=== PATIENT | female | born 1955 | race Caucasian/White ===

== ENCOUNTER 2018-08-13 14:27 | Emergency (ER) | payer OTHER ==
[~2018-08-13] VITALS: Ht 172.7 cm; Wt 81.6 kg
[~2018-08-13 14:27] MED LIST: CHOL20007 PO; CYAN100L PO; INSLANTI SC; INSLISPI SC; LISI-646 PO; METF-370 PO; PRAV20TA3 PO; WARF10TA20 PO
[2018-08-13 15:32] LABS: Albumin 3.2 g/dL (3.4-5.0); Anion Gap 7 (5-15); Calcium 8.9 mg/dL (8.5-10.1); Carbon Dioxide 27 mmol/L (21-32); Chloride 107 mmol/L (98-107); Glucose 112 mg/dL (74-106); Potassium 4.1 mmol/L (3.5-5.1); Sodium 141 mmol/L (136-145)
[2018-08-13 15:37] LABS: Alanine Aminotransferase 18 U/L (13-56); Alkaline Phosphatase 92 U/L (45-117); Aspartate Aminotransferase 13 U/L (15-37); BUN/Creatinine Ratio 18.4; Bilirubin, Total 0.3 mg/dL (0.2-1.0); Blood Urea Nitrogen 14 mg/dL (7-18); GFR African American 99 mL/min; GFR Non-African American 82 mL/min; Total Protein 6.8 g/dL (6.4-8.2)
[2018-08-13 16:12] LABS: Basophils # (auto) 0 uL; Basophils % (auto) 0.6 % (0.0-2.0); Eosinophils # (auto) 0.1 uL; Eosinophils % (auto) 1.1 % (0.0-7.0); Hemoglobin 15.5 g/dL (12.2-16.2); Lymphocytes # (auto) 1.7 uL; Lymphocytes % (auto) 25.8 % (10.0-50.0); Mean Corpuscular Hemoglobin 31.6 pg (28.0-32.0); Mean Corpuscular Volume 95.8 fL (80.0-100.0); Monocytes # (auto) 0.5 uL; Monocytes % (auto) 8.2 % (0.0-12.0); Neutrophils # (auto) 4.2 uL; Neutrophils % (auto) 64.3 % (37.0-80.0); Nucleated Red Blood Cells % 0.2 %; Platelet Count (auto) 247 10^3/uL (140-450); Red Blood Cells 4.91 10^6/uL (4.0-5.20); Red Cell Distribution Width 13.8 % (11.8-14.3); White Blood Cell 6.5 10^3/uL (4.4-10.8)
[2018-08-13 16:43] LABS: Urine Bacteria NONE SEEN /hpf (None Seen); Urine Blood Negative /uL (Negative); Urine Specific Gravity 1.006 (1.001-1.035); Urine WBC 3 /hpf (0 - 5)
[2018-08-14] MEDS ORDERED: ONDANSETRON HCL 4 MG/2 ML VIAL IV ONE (01:30)
[2018-08-14] MEDS ORDERED: MORPHINE SULF INJ 2 MG/ML SYRINGE 1ML IV ONE (01:30)
[2018-08-14] MEDS ORDERED: SODIUM CHLORIDE 0.9% 1,000 ML IV ONE (01:30)
[2018-08-14 02:28] VITALS: BP 122/72
== END 2018-08-14 03:35 | disposition home or self-care (01) ==
LOC: ER 14:27
DX: A08.4 Viral intestinal infection, unspecified (principal); E86.0 Dehydration; I11.0 Hypertensive heart disease with heart failure; I50.9 Heart failure, unspecified; E11.9 Type 2 diabetes mellitus without complications; F17.210 Nicotine dependence, cigarettes, uncomplicated; Z90.710 Acquired absence of both cervix and uterus; Z86.73 Personal history of transient ischemic attack (TIA), and cerebral infarction without residual deficits; Z86.711 Personal history of pulmonary embolism; Z79.899 Other long term (current) drug therapy; Z79.4 Long term (current) use of insulin
CPT/HCPCS: 36415; 80053; 81001; 83605; 84484; 85025; 87804; 93005; 96361; 96374; 96375; 99284; J2270; J2405; J7030

== ENCOUNTER 2021-06-14 21:32 | Emergency (ER) | payer OTHER ==
[~2021-06-14] VITALS: Ht 172.7 cm; Wt 97.1 kg
[~2021-06-14 21:32] MED LIST changes: -LISI-646 PO; +LISI20TA28 PO
[2021-06-14 22:03] LABS: Basophils # (auto) 0.2 10 ^3/uL (0-0.2); Eosinophils # (auto) 0.1 10 ^3/uL (0-0.8); Eosinophils % (auto) 1.2 % (0.0-7.0); Hemoglobin 16.5 g/dL (12.2-16.2); Lymphocytes # (auto) 1.5 10 ^3/uL (0.4-5.4); Lymphocytes % (auto) 24.4 % (10.0-50.0); Mean Corpuscular Hemoglobin 31.8 pg (28.0-32.0); Mean Corpuscular Hgb Conc. 33.7 g/dL (32.0-36.0); Mean Corpuscular Volume 94.2 fL (80.0-100.0); Monocytes # (auto) 0.7 10 ^3/uL (0-1.3); Monocytes % (auto) 11.6 % (0.0-12.0); Neutrophils # (auto) 3.6 10 ^3/uL (1.6-8.6); Neutrophils % (auto) 59.8 % (37.0-80.0); Red Cell Distribution Width 13.9 % (11.8-14.3)
[2021-06-14 22:21] LABS: Albumin 3.4 g/dL (3.4-5.0); BUN/Creatinine Ratio 10.7; Calcium 9.5 mg/dL (8.5-10.1); Potassium 4.4 mmol/L (3.5-5.1)
[2021-06-14 22:26] LABS: Bilirubin, Total 0.8 mg/dL (0.2-1.0); Total Protein 7.1 g/dL (6.4-8.2)
[2021-06-14] MEDS ORDERED: IOHEXOL 300 MG/ML 100ML BOTTLE IJ ONE (22:28)
[2021-06-15 01:30] VITALS: BP 116/72
[2021-06-15] MEDS ORDERED: DICYCLOMINE HCL (10MG/ML) 2 ML AMPULE IM ONE (02:15)
[2021-06-15] MEDS ORDERED: FAMO20TA10 PO (02:27)
[2021-06-15] MEDS ORDERED: DICY10CA PO (02:27)
[2021-06-15] MEDS ORDERED: SUCR1TAB22 OR (02:27)
[2021-06-15] MEDS ORDERED: KETOROLAC TROMETH 60MG/2ML VIAL IM ONE (02:30)
== END 2021-06-15 02:43 | disposition home or self-care (01) ==
LOC: ER 21:35
DX: R55 Syncope and collapse (principal); R10.10 Upper abdominal pain, unspecified; I11.0 Hypertensive heart disease with heart failure; I50.9 Heart failure, unspecified; E11.9 Type 2 diabetes mellitus without complications; F17.210 Nicotine dependence, cigarettes, uncomplicated; Z90.710 Acquired absence of both cervix and uterus; Z86.73 Personal history of transient ischemic attack (TIA), and cerebral infarction without residual deficits
CPT/HCPCS: 36415; 74177; 80053; 83690; 84484; 85025; 93005; 96372; 99285; Q9967

== ENCOUNTER 2021-12-21 16:36 | Emergency (ER) | payer MEDICARE, OTHER ==
[~2021-12-21] VITALS: Ht 172.7 cm; Wt 190.0 kg
[~2021-12-21 16:36] MED LIST changes: +DICY10CA PO; +FAMO20TA10 PO; +SUCR1TAB22 OR
[2021-12-21 18:01] LABS: Basophils # (auto) 0 10 ^3/uL (0-0.2); Basophils % (auto) 0.7 % (0.0-2.0); Eosinophils # (auto) 0.1 10 ^3/uL (0-0.8); Eosinophils % (auto) 1.4 % (0.0-7.0); Hemoglobin 14.4 g/dL (12.2-16.2); Lymphocytes # (auto) 1.5 10 ^3/uL (0.4-5.4); Mean Corpuscular Hemoglobin 30.4 pg (28.0-32.0); Mean Corpuscular Hgb Conc. 31.9 g/dL (32.0-36.0); Mean Corpuscular Volume 95.4 fL (80.0-100.0); Monocytes # (auto) 0.5 10 ^3/uL (0-1.3); Monocytes % (auto) 10.8 % (0.0-12.0); Neutrophils # (auto) 2.2 10 ^3/uL (1.6-8.6); Neutrophils % (auto) 51.1 % (37.0-80.0); Nucleated Red Blood Cells % 0.1 %; Red Blood Cells 4.72 10^6/uL (4.0-5.20); Red Cell Distribution Width 14.7 % (11.8-14.3); White Blood Cell 4.3 10^3/uL (4.4-10.8)
[2021-12-21 18:18] LABS: INR 3.15 (0.9-1.15)
[2021-12-21 18:29] LABS: Calcium 8.7 mg/dL (8.5-10.1); Potassium 4.3 mmol/L (3.5-5.1)
[2021-12-21 18:33] LABS: BUN/Creatinine Ratio 21.1; Bilirubin, Total 0.5 mg/dL (0.2-1.0); Total Protein 6.4 g/dL (6.4-8.2)
[2021-12-21 20:15] VITALS: BP 134/75
== END 2021-12-21 20:17 | disposition home or self-care (01) ==
LOC: ER 16:36
DX: R22.42 Localized swelling, mass and lump, left lower limb (principal); M79.662 Pain in left lower leg; I11.0 Hypertensive heart disease with heart failure; I50.9 Heart failure, unspecified; E11.9 Type 2 diabetes mellitus without complications; F17.210 Nicotine dependence, cigarettes, uncomplicated; Z86.73 Personal history of transient ischemic attack (TIA), and cerebral infarction without residual deficits; Z79.4 Long term (current) use of insulin; Z79.899 Other long term (current) drug therapy; Z90.49 Acquired absence of other specified parts of digestive tract; Z90.710 Acquired absence of both cervix and uterus
CPT/HCPCS: 36415; 80053; 85025; 85610; 93971

== ENCOUNTER 2024-06-17 12:37 | Inpatient (IN) | payer MEDICARE, OTHER ==
[~2024-06-17] VITALS: Ht 147.3 cm; Wt 91.6 kg
[~2024-06-17 12:37] MED LIST changes: -LISI20TA28 PO; +LISI20TA56 PO; -SUCR1TAB22 OR; +SUCR1TAB31 OR; +WARF-115 PO; -WARF10TA20 PO
--- NOTE | 2024-06-17 13:25 | ED.PDOC ---
History of present illness HPI Comments 68 y/o F, presents to the ED for CC hyperglycemia. Patient states, that she has been experiencing hyperglycemic episodes with associated symptoms of excessive thirst, and dizziness x months. Patient relays, that she had an appointment with her PCP this morning (06/17/24); for an insulin refill. Patient comments on, when she went to [facility] prescription there was an issue with the pharmacy and was unable to obtain her medication. Patient states, she ran out of her insulin [id number] ago. Patient's blood sugar in triage read at 515. No other symptoms or modifying factors at this time. Chief Complaint: Hyperglycemia Time Seen by MD: 13:00 Primary Care Provider: NEVAEH History of present illness: Nurses Notes, Medications, Allergies Allergies: Coded Allergies: NO KNOWN ALLERGIES (Unverified , 03/11/12) Home Meds Active Scripts Famotidine (PEPCID TABLET) 20 Mg Tb, 1 TAB PO BID, #60 TAB 5 Refills Prov:MICHAEL MELO MD 06/15/21 Dicyclomine Hcl (BENTYL CAPSULE) 10 Mg Cp, 1 CAP PO Q6HPRN for 10 Days, #40 CAP 3 Refills Prov:MICHAEL MELO MD 06/15/21 Sucralfate (CARAFATE) 1 Gm Tab, 1 GM OR q 6HRS for 10 Days, #40 TAB Prov:MICHAEL MELO MD 06/15/21 Reported Medications Warfarin Sodium (Warfarin Sodium) 10 Mg Tab, 10 MG PO, TAB 11/13/17 Cholecalciferol (VITAMIN D3) 2,000 Unit Tab, 5000 UNIT PO DAILY, TAB 11/11/17 Cyanocobalamin (VITAMIN B 12) 100 Mcg True, 500 MCG PO DAILY, TRUE 11/11/17 Insulin Glargine (Lantus) 100 Unit/Ml Inj, 90 UNIT SC QHSP, INJ 11/11/17 Insulin Lispro (Human) (Humalog) 100 Unit/Ml Inj, SC, INJ 11/11/17 Pravastatin Sodium (PRAVACHOL TABLET) 20 Mg Tb, 1 TAB PO DAILY, #30 TAB 5 Refills 11/11/17 Metformin Hydrochloride (Metformin Hcl) 500 Mg Tab, 1000 MG PO BID for 30 Days, MG 11/11/17 Lisinopril (Lisinopril) 20 Mg Tab, 20 MG PO DAILY for 30 Days, MG 7/10/18 Information Source: Patient Mode of Arrival: Ambulatory Timing: Months Duration: Since onset Prehospital treatment: None [place]: None History of: Diabetes, Insulin use Modifying factors: Nothing Associated signs and symptoms: None Past Medical History PAST MEDICAL HISTORY: Cancer, CHF, CVA, DM, HTN, PE Surgical History: Appendectomy, Hysterectomy STONEWORK TRACER History: No Pertinent STONEWORK TRACER History Family History Family History: No family hx of Cancer, No family hx of DM, No family hx of Heart liss, No family hx of HTN Social History Smoker: Cigarettes, Less Than 1 Pack/Day Alcohol: Occasionally Drugs: Denies Drug Use Lives In: Home Constitutional: reports: fatigue; denies: chills, diaphoresis, fever, malaise, sweats, weakness, others EENTM: denies: blurred vision, double vision, ear bleeding, ear discharge, ear drainage, ear pain, ear ringing, eye pain, eye redness, hearing loss, mouth p ain, mouth swelling, nasal discharge, nose bleeding, nose congestion, nose pain, photophobia, tearing, throat pain, throat swelling, voice changes, others Respiratory: denies: cough, hemoptysis, orthopnea, SOB at rest, shortness of br eath, SOB with excertion, stridor, wheezing, others Cardiovascular: denies: chest pain, dizzy spells, diaphoresis, Dyspnea on exertion, edema, irregular heart beat, left arm pain, lightheadedness, palpitations, PND, syncope, others Gastrointestinal: denies: abdomen distended, abdominal pain, blood streaked bowels, constipated, diarrhea, dysphagia, difficulty swallowing, hematemesis, melena, nausea, poor appetite, poor fluid intake, rectal bleeding, rectal pain, vomiting, others Genitourinary: denies: abnormal vagina bleeding, burning, dyspareunia, dysuria, flank pain, frequency, hematuria, incontinence, pain, , vagina discharge, urgency, others Neurological: reports: dizziness; denies: fainting, headache, left sided numbness, left sided weakness, numbness, paresthesia, pre-existing deficit, right sided numbness, right sided weakness, seizure, speech problems, tingling, tremors, weakness, others Musculoskeletal: denies: back pain, gout, joint pain, joint swelling, muscle pain, muscle stiffness, neck pain, others Integumetry: denies: bruises, change in color, change in hair/nails, dryness, laceration, lesions, lumps, rash, wounds, others Allergic/Immunocompromised: denies: Difficulty Healing, Frequent Infections, Hives, Itching, others Hematologic/Lymphatic: denies: anemia, blood clots, easy bleeding, easy bruis ing, swollen glands, others Endocrine: denies: excessive hunger, excessive sweating, excessive thirst, exc essive urination, flushing, intolerance to cold, intolerance to heat, unexplained weight gain, unexplained weight loss, others Psychiatric: denies: anxiety, bipolar disorder, depression, hopeless, panic disorder, schizophrenia, sleepless, suicidal, others All Other Systems: Reviewed and Negative Physical Exam General Appearance: Moderate Distress HEENT: Normal ENT Inspection, Pharynx Normal, TMs Normal Neck: Full Range of Motion, Non-Tender, Normal, Normal Inspection Respiratory: Chest Non-Tender, Lungs Clear, No Accessory Muscle Use, No Respiratory Distress, Normal Breath Sounds Cardiovascular: No Edema, No JVD, No Murmur, No Gallop, Normal Peripheral Pulses, Regular Rate/Rhythm Breast Exam: Deferred Gastrointestinal: No Organomegaly, Non Tender, No Pulsatile Mass, Normal Bowel Sounds, Soft Genitalia: Deferred Pelvic: Deferred Rectal: Deferred Extremities: No calf tenderness, Normal capillary refill, Normal inspection, Normal range of motion, Non-tender, No pedal edema Musculoskeletal : Apperance: Normal Neurologic: Alert, pewter caster II-XII nml as Tested, Motor Weakness, Normal Affect, Normal Mood, No Sensory Deficits Cerebellar Function: Normal Reflexes: Normal Skin: Dry, Normal Color, Warm Lymphatic: No Adenopathy Was a procedure done? Was a procedure done?: No EKG EKG : Pulse Rate (adult): 73 [place]: Normal Cardiac Rhythm: NSR Block: None Hypertrophy: LAE, LVH ST: Normal Differential Diagnosis (DM) Differential Diagnosis: Hyperglycemia X-Ray, Labs, Meds, VS Vital Signs Date Time Temp Pulse Resp B/P (MAP) Pulse Ox O2 Delivery O2 Flow Rate FiO2 06/17/24 14:23 98.4 79 18 103/55 (71) 95 98.4 06/17/24 14:23 79 18 95 Room Air 06/17/24 13:25 73 06/17/24 12:53 73 06/17/24 12:46 98.7 78 20 130/57 (81) 95 Lab Test 06/17/24 14:23 06/17/24 13:24 06/17/24 12:47 06/17/24 12:46 Range/Units Urine Color Light-yellow Yellow Urine Clarity Clear Clear Urine pH 6.0 5.0-9.0 Urine Specific [place] 1.031 1.001-1.035 Urine Protein Negative Negative Urine Ketones 1+ H Negative Urine Blood Negative Negative /uL Urine Nitrite 2+ H Negative Urine Bilirubin Negative Negative Urine Urobilinogen Normal Negative mg/dL Urine Leukocyte Esterase 1+ Negative /uL Urine RBC 5 0 - 4 /hpf Urine Microscopic WBC 19 H 0-5 /HPF Urine Squamous Epithelial Cells Few <5 /hpf Urine Bacteria Few H None Seen /hpf Urine Mucus Few None Seen Urine Yeast (Budding) Occasional None Seen /hpf Urine Glucose 4+ H Normal mg/dL POC Glucose 302 H 515 *H 515 *H 70-106 mg/dl White Blood Count 4.0 L 4.4-10.8 10^3/uL Red Blood Count 4.91 4.0-5.20 10^6/uL Hemoglobin 15.5 12.2-16.2 g/dL Hematocrit 46.7 H 36.0-46.0 % Mean Corpuscular Volume 95.0 80.0-100.0 fL Mean Corpuscular Hemoglobin 31.6 28.0-32.0 pg Mean Corpuscular Hemoglobin Concent 33.2 32.0-36.0 g/dL Red Cell Distribution Width 12.8 11.8-14.3 % Platelet Count 208 140-450 10^3/uL Mean Platelet Volume 9.5 6.9-10.8 fL Neutrophils (%) (Auto) 61.9 37.0-80.0 % Lymphocytes (%) (Auto) 27.3 10.0-50.0 % Monocytes (%) (Auto) 9.2 0.0-12.0 % Eosinophils (%) (Auto) 0.7 0.0-7.0 % Basophils (%) (Auto) 0.9 0.0-2.0 % Neutrophils # (Auto) 2.5 1.6-8.6 10 ^3/uL Lymphocytes # (Auto) 1.1 0.4-5.4 10 ^3/uL Monocytes # (Auto) 0.4 0-1.3 10 ^3/uL Eosinophils # (Auto) 0 0-0.8 10 ^3/uL Basophils # (Auto) 0 0-0.2 10 ^3/uL Nucleated Red Blood Cells 0.3 % Sodium Level 136 136-145 mmol/L Potassium Level 5.1 3.5-5.1 mmol/L Chloride Level 98 98-107 mmol/L Carbon Dioxide Level 31 20-31 mmol/L Anion Gap 7 5-15 Blood Urea Nitrogen 15 9-23 mg/dL Creatinine 0.99 0.550-1.02 mg/dL Glomerular Filtration Rate Calc 62 >90 mL/min BUN/Creatinine Ratio 15.2 10.0-20.0 Serum Glucose 511 *H 74-106 mg/dL Calcium Level 10.2 8.7-10.4 mg/dL Beta-Hydroxybutyric Acid 0.764 H < 0.4 mmol/L Current Medications Medications (Trade) Dose Ordered Sig/Nicole Route Start Time Stop Time Status Last Admin Sodium Chloride 500 ml @ 500 mls/hr Q1H ONCE IV 06/17/24 13:15 06/17/24 14:14 DC 06/17/24 13:44 Insulin Human Regular (InsuLIN R) 10 units ONCE ONCE IV 06/17/24 13:15 06/17/24 13:16 DC 06/17/24 13:44 CXR: FINDINGS: Lines and Tubes: None Lungs: No focal consolidation. There is a calcified nodule in the left lower lung. Pleura: No effusion. No pneumothorax. Cardiomediastinal contours: Unremarkable. Atherosclerotic vascular calcifications of the thoracic aorta are noted. Bones: No acute osseous abnormality. IMPRESSION: No acute cardiopulmonary disease. ATED BY: CANDACE MEADE MD DICTATED DATE/TIME: 06/17/241345 SIGNED BY: CANDACE MEADE MD SIGNED DATE/TIME: 06/17/241345 CC: The beta hydroxybutyric acid is elevated The patient's CBC and chemistry panel are within normal limits The urine test is positive for UTI as well as glucose The patient is being admitted with a diagnosis of hyperglycemia The patient understands and agrees with the management. Time of 1ST Reevaluation: 13:30 Reevaluation 1ST: Unchanged Patient Education/Counseling: Diagnosis, Treatment, Prognosis Family Education/Counseling: No Family Present Additional Information - I reviewed the following notes from patient's past medical encounters: 12/21/21 DX: LEFT LEG SWELLING - The following tests were ordered, and results were reviewed by me: CBC, UA, BMP, ACETONE, CXR - I reviewed and agreed with the following test results read by other provider: CXR - I discussed treatments and results with medical personnel and: PATIENT Departure 1 Departure Time of Disposition: 17:24 Impression: Primary Impression: Uncontrolled diabetes mellitus Qualified Codes: E13.65 - Other specified diabetes mellitus with hyperglycemia Additional Impressions: UTI (urinary tract infection) Qualified Codes: N30.00 - Acute cystitis without hematuria Generalized weakness Disposition: ADMITTED INPATIENT Admit to: Med Surg Condition: Fair Critical Care Note Critical Care Time?: No Stability Stability form required: No Heart Score Heart Score: Heart Score Response (Comments) Value History N/A 0 EKG N/A 0 Age N/A 0 Risk Factors N/A 0 Troponin N/A 0 Total 0 I personally scribed for MERCED BOYER MD ([email or web address]) on 06/17/24 at 13:25. Electronically submitted by Shirin Coley ([email or web address]). I personally scribed for MERCED BOYER MD ([email or web address]) on 06/17/24 at 14:19. Electronically submitted by Shirin Coley ([email or web address]). MERCED BOYER MD Jun 17, 2024 13:25
[2024-06-17] MEDS: SODIUM CHLORIDE 0.9% 500 ML IV ONE (13:44)
[2024-06-17] MEDS: InsuLIN REG 1unit/0.01ml Soln (100units/ml) IV ONE (13:44)
--- NOTE | 2024-06-17 13:47 | DVH ---
EXAM: XY CHEST TWO VIEWS ROUTINE CLINICAL HISTORY: weakness COMPARISON: None TECHNIQUE: Frontal and lateral view of the chest was obtained FINDINGS: Lines and Tubes: None Lungs: No focal consolidation. There is a calcified nodule in the left lower lung. Pleura: No effusion. No pneumothorax. Cardiomediastinal contours: Unremarkable. Atherosclerotic vascular calcifications of the thoracic aor ta are noted. Bones: No acute osseous abnormality. IMPRESSION: No acute cardiopulmonary disease.
[2024-06-17 13:58] LABS: Basophils # (auto) 0 10 ^3/uL (0-0.2); Basophils % (auto) 0.9 % (0.0-2.0); Eosinophils # (auto) 0 10 ^3/uL (0-0.8); Eosinophils % (auto) 0.7 % (0.0-7.0); Hematocrit 46.7 % (36.0-46.0); Hemoglobin 15.5 g/dL (12.2-16.2); Lymphocytes # (auto) 1.1 10 ^3/uL (0.4-5.4); Lymphocytes % (auto) 27.3 % (10.0-50.0); Mean Corpuscular Hemoglobin 31.6 pg (28.0-32.0); Mean Corpuscular Hgb Conc. 33.2 g/dL (32.0-36.0); Monocytes # (auto) 0.4 10 ^3/uL (0-1.3); Monocytes % (auto) 9.2 % (0.0-12.0); Neutrophils # (auto) 2.5 10 ^3/uL (1.6-8.6); Neutrophils % (auto) 61.9 % (37.0-80.0); Nucleated Red Blood Cells % 0.3 %; Platelet Count (auto) 208 10^3/uL (140-450); Red Blood Cells 4.91 10^6/uL (4.0-5.20); Red Cell Distribution Width 12.8 % (11.8-14.3)
[2024-06-17 13:59] LABS: Sodium 136 mmol/L (136-145)
[2024-06-17 14:00] LABS: Anion Gap 7 (5-15)
[2024-06-17 14:01] LABS: Calcium 10.2 mg/dL (8.7-10.4); Carbon Dioxide 31 mmol/L (20-31); Chloride 98 mmol/L (98-107); Potassium 5.1 mmol/L (3.5-5.1)
[2024-06-17 14:06] LABS: BUN/Creatinine Ratio 15.2 (10.0-20.0); Blood Urea Nitrogen 15 mg/dL (9-23)
[2024-06-17 14:14] LABS: Glucose 511 mg/dL (74-106)
[2024-06-17 14:58] LABS: Urine Bacteria FEW /hpf (None Seen); Urine Blood Negative /uL (Negative); Urine Budding Yeast OCCASIONAL /hpf (None Seen); Urine Clarity Clear (Clear); Urine Color Light-Yellow (Yellow); Urine Mucus FEW (None Seen); Urine Protein, UAD Negative (Negative); Urine Specific Gravity 1.031 (1.001-1.035); Urine Squamous Epithelial Cell FEW /hpf (<5); Urine Urobilinogen Normal (Negative); Urine WBC 19 /HPF (0-5)
[2024-06-17 17:50] VITALS: PULSE 84; RESP 19; O2SAT 97
[2024-06-17 20:54] VITALS: PULSE 86; RESP 16; O2SAT 97
[2024-06-17] MEDS ORDERED: ONDANSETRON HCL 4 MG/2 ML VIAL IV PRN (21:30)
[2024-06-17] MEDS ORDERED: NITROGLYCERIN 0.4 MG SL TAB SL PRN (21:30)
[2024-06-17] MEDS: MORPHINE SULFATE INJ 2 MG/ml SYRG IV PRN (21:50)
[2024-06-17 22:12] LABS: Alanine Aminotransferase 13 U/L (7-40); Albumin 3.8 g/dL (3.2-4.8); Anion Gap 10 (5-15); BUN/Creatinine Ratio 15.1 (10.0-20.0); Blood Urea Nitrogen 11 mg/dL (9-23); Calcium 9.3 mg/dL (8.7-10.4); Carbon Dioxide 21 mmol/L (20-31); Chloride 103 mmol/L (98-107); Potassium 3.9 mmol/L (3.5-5.1)
[2024-06-17 22:13] LABS: Bilirubin, Total 0.5 mg/dL (0.2-1.0)
[2024-06-17 22:15] LABS: Alkaline Phosphatase 119 U/L (46-116); Aspartate Aminotransferase 10 U/L (13-40); Glucose 338 mg/dL (74-106); Sodium 134 mmol/L (136-145)
[2024-06-17] MEDS ORDERED: DEXTROSE (50%) 50ML SYRG IV PRN (22:30)
[2024-06-17 22:55] LABS: Blood Alcohol < 3.0 mg/dL (<10); Magnesium 1.7 mg/dL (1.6-2.6)
[2024-06-17 22:56] LABS: INR 1.68 (0.9-1.15); Partial Thromboplastin Time 29.6 SEC (24.5-34.5); Prothrombin Time 16.9 sec (9.3-11.8)
[2024-06-17] MEDS: PANTOPRAZOLE 40 MG/10 ML VIAL INJ IV SCH (22:58)
[2024-06-17 23:10] VITALS: BP 126/58; PULSE 69; RESP 18; TEMP 97.7; O2SAT 95
[2024-06-17 23:20] VITALS: BP 117/75; PULSE 58; TEMP 98; O2SAT 96
--- NOTE | 2024-06-17 23:20 | DVHHPRES ---
History of Present Illness Resident Creating Document: GRACE RODRIGUEZ RESIDENT History of Present Illness ALBERTO BARAJAS is a 68-year-old female with a PMH of type 2 DM, HTN, CHF, CVA, PE presented to the ED with the chief complaints of elevated blood sugar today morning. Patient reported every day she shakes her blood sugar but today moaning it was in 500s and she had dizziness, weakness. Patient reported she has been having polyuria polydipsia recently. Reported she ran out for insulin 3-4 months ago and reported she is not taking any medications for diabetes. On my assessment patient denies fever, nausea, vomiting, diarrhea, abdominal pain, diaphoresis, chest pain, and other acute associated symptoms. PSH: type 2 DM, HTN, CHF, CVA, PE , skin cancer PSH: Appendectomy, Hysterectomy Family history: Cancer runs in families Social history: Lives with family. Cigarettes, Less Than 1 Pack/Day, Occasionally alcohol but denies other drug abuse Allergies: No known allergies Review of Systems Review of Systems Dizziness Constitutional: Yes: Fever, Weakness Eyes: No: Pain, Vision change, Conjunctivae inflammation, Eyelid inflammation, Other, Redness ENT: Other (Hard of Hearing) Respiratory: No: Cough, Dry, Shortness of breath, SOB with excertion, Wheezing, Hemoptysis, Pleuritic Pain, Sputum, Wheezing, Other Cardiovascular: Edema Gastrointestinal: No: Nausea, Vomiting, Abdominal Pain, Diarrhea, Constipation, Melena, Hematochezia, Other Skin: No: Rash, Lesions, Jaundice, Bruising, Other Neurological: No: Weakness, Numbness, Incoordination, Change in speech, Confusion, Seizures, Other Allergies: Coded Allergies: NO KNOWN ALLERGIES (Unverified , 03/11/12) Medications Current Medications Medications Dose Ordered Sig/Nicole Route Start Time Stop Time Status Last Admin Dose Admin Ondansetron HCl 4 mg Q4HP PRN IV 06/17/24 21:30 Docusate Sodium 100 mg BIDPRN PRN PO 06/17/24 21:30 Enoxaparin Sodium 40 mg DAILY SC 06/18/24 10:00 Acetaminophen 650 mg Q6HP PRN PO 06/17/24 21:30 Nitroglycerin 0.4 mg Q5MINP PRN SL 06/17/24 21:30 Morphine Sulfate 2 mg Q30M PRN IV 06/17/24 21:30 06/17/24 21:50 2 MG Diagnostic Test (Pha) 1 strip ACHS 06/18/24 07:00 Insulin Human Regular AC SC 06/18/24 07:00 Insulin Human Regular HS SC 06/18/24 22:00 Dextrose 50 ml UD PRN IV 06/17/24 22:30 Pantoprazole Sodium 40 mg DAILY IV 06/17/24 22:30 06/17/24 22:58 40 MG Ceftriaxone Sodium 50 ml @ 100 mls/hr DAILY@2300 IV 06/17/24 23:00 Exam Vital Signs Vital Signs Date Time Temp Pulse Resp B/P (MAP) Pulse Ox O2 Delivery O2 Flow Rate FiO2 06/17/24 22:17 68 16 113/53 06/17/24 22:00 95 06/17/24 20:54 Room Air* 0 21 06/17/24 20:54 98.4 98.4 Exam Pt is lying on bed General Appearance: Alert, Oriented X3, Cooperative, mild distress HEENT: Atraumatic, Mucous membranes dry, Respiratory: Clear to auscultation, Normal air movement, No added sounds Cardiovascular: Regular rate, Normal S1, Normal S2, No murmurs Abdominal: Normal bowel sounds, no tenderness, Soft, no distention Extremities: 1+ edema LLE , Normal pulses, No tenderness Skin: No Significant rash Neuro: Normal speech, sensorimotor deficits none Psych/Mental Status: Mental status NL, Mood NL Nurse was there as sharperone during examination Labs/Xrays Labs Test 06/17/24 22:40 06/17/24 22:21 06/17/24 21:38 06/17/24 19:38 Range/Units Prothrombin Time 16.9 H 9.3-11.8 sec Prothrombin Time INR 1.68 H 0.9-1.15 Activated Partial Thromboplast Time 29.6 24.5-34.5 SEC Hemoglobin A1c > 14.0 H <5.7 % A1C Lactic Acid Level 0.9 0.4-2.0 mmol/L Magnesium Level 1.7 1.6-2.6 mg/dL B-Type Natriuretic Peptide 32.39 0-100 pg/mL Thyroid Stimulating Hormone (TSH) 1.34 0.55-4.78 uIU/mL Plasma/Serum Blood Alcohol < 3.0 <10 mg/dL Sodium Level 134 L 136-145 mmol/L Potassium Level 3.9 3.5-5.1 mmol/L Chloride Level 103 98-107 mmol/L Carbon Dioxide Level 21 20-31 mmol/L Anion Gap 10 5-15 Blood Urea Nitrogen 11 9-23 mg/dL Creatinine 0.73 0.550-1.02 mg/dL Glomerular Filtration Rate Calc 89 >90 mL/min BUN/Creatinine Ratio 15.1 10.0-20.0 Serum Glucose 338 H 74-106 mg/dL Calcium Level 9.3 8.7-10.4 mg/dL Total Bilirubin 0.5 0.2-1.0 mg/dL Aspartate Amino Transferase (AST) 10 L 13-40 U/L Alanine Aminotransferase (ALT) 13 7-40 U/L Alkaline Phosphatase 119 H 46-116 U/L Total Protein 6.0 5.7-8.2 g/dL Albumin 3.8 3.2-4.8 g/dL POC Glucose 302 H 70-106 mg/dl Test 06/17/24 14:23 06/17/24 13:24 Range/Units Urine Color Light-yellow Yellow Urine Clarity Clear Clear Urine pH 6.0 5.0-9.0 Urine Specific [place] 1.031 1.001-1.035 Urine Protein Negative Negative Urine Ketones 1+ H Negative Urine Blood Negative Negative /uL Urine Nitrite 2+ H Negative Urine Bilirubin Negative Negative Urine Urobilinogen Normal Negative mg/dL Urine Leukocyte Esterase 1+ Negative /uL Urine RBC 5 0 - 4 /hpf Urine Microscopic WBC 19 H 0-5 /HPF Urine Squamous Epithelial Cells Few <5 /hpf Urine Bacteria Few H None Seen /hpf Urine Mucus Few None Seen Urine Yeast (Budding) Occasional None Seen /hpf Urine Glucose 4+ H Normal mg/dL White Blood Count 4.0 L 4.4-10.8 10^3/uL Red Blood Count 4.91 4.0-5.20 10^6/uL Hemoglobin 15.5 12.2-16.2 g/dL Hematocrit 46.7 H 36.0-46.0 % Mean Corpuscular Volume 95.0 80.0-100.0 fL Mean Corpuscular Hemoglobin 31.6 28.0-32.0 pg Mean Corpuscular Hemoglobin Concent 33.2 32.0-36.0 g/dL Red Cell Distribution Width 12.8 11.8-14.3 % Platelet Count 208 140-450 10^3/uL Mean Platelet Volume 9.5 6.9-10.8 fL Neutrophils (%) (Auto) 61.9 37.0-80.0 % Lymphocytes (%) (Auto) 27.3 10.0-50.0 % Monocytes (%) (Auto) 9.2 0.0-12.0 % Eosinophils (%) (Auto) 0.7 0.0-7.0 % Basophils (%) (Auto) 0.9 0.0-2.0 % Neutrophils # (Auto) 2.5 1.6-8.6 10 ^3/uL Lymphocytes # (Auto) 1.1 0.4-5.4 10 ^3/uL Monocytes # (Auto) 0.4 0-1.3 10 ^3/uL Eosinophils # (Auto) 0 0-0.8 10 ^3/uL Basophils # (Auto) 0 0-0.2 10 ^3/uL Nucleated Red Blood Cells 0.3 % Beta-Hydroxybutyric Acid 0.764 H < 0.4 mmol/L Assessment/Plan Assessment/Plan # Uncontrolled T2 DM with for hyperglycemia with HbA1c >14 without DKA - received 10 units IV insulinR once - continuously monitored - Accuchecks and aggressive ISS - Lantus 18 units # Dehydartion - monitor # Acute complicated UTI - evident on urinalysis - ordered urine culture - currently on Rocephin # medication noncompliance - counseled regarding compliance # uncontrolled HTN - monitor blood pressure # CHF not in exacerbation # H/O PE on warfarin PUD PPX: Protonix VTE PPX: Lovenox Diet: Diabetic Diet Goals of care discussed with the patient for more than 29 minutes: Full code status Case discussed with Dr. Miner, patient and nurse Plan discussed with: Patient My Orders Orders - GRACE RODRIGUEZ RESIDENT Procedure Category Date Status Time Admit ADMIT 06/17/24 Transmitted 21:23 Allergies JONES 06/17/24 In Process 21:23 Code Status CODE 06/17/24 Transmitted 21:23 Ondansetron Hcl PHA 06/17/24 In Process (Zofran) 21:30 Docusate Sodium PHA 06/17/24 In Process Capsule (Colace 21:30 Enoxaparin Sodium PHA 06/18/24 In Process (Lovenox) 10:00 Complete Blood Count LAB 2/14/25 Verified 04:00 Condition: Stable JONES 06/17/24 In Process 21:23 Acetaminophen Tablet PHA 06/17/24 In Process (Tylenol Tablet) 21:30 Nitroglycerin PHA 06/17/24 In Process Sublingual (Ntrostat 21:30 Morphine Sulfate PHA 06/17/24 In Process Injection 21:30 Oxygen By Nasal RT 06/17/24 Transmitted Cannula 21:23 Stat Ekg For Chest JONES 06/17/24 In Process Pain 21:23 Notify Of Changes JONES 06/17/24 In Process From Base 21:23 Law Librarian For JONES 06/17/24 In Process 24 Hours 21:23 Emergency Dysrhythmia JONES 06/17/24 In Process Protocol 21:23 Rhythm Strips Once JONES 06/17/24 In Process Every Shift 21:23 Glucose Blood PHA 06/18/24 In Process (Accu-Chek Comfort 07:00 Insulin R (Human) PHA 06/18/24 In Process (Insulin R) 07:00 Dextrose 50% Syringe PHA 06/17/24 In Process 22:30 Insulin R (Human) PHA 06/18/24 In Process (Insulin R) 22:00 Rapid Influenza A&B LAB 06/17/24 In Process 22:18 Covid19 Antigen Giulia LAB 06/17/24 In Process Drug Screen LAB 06/17/24 In Process 22:18 Pantoprazole PHA 06/17/24 In Process (Protonix) 22:30 Ceftriaxone 1gm/50ml PHA 06/17/24 In Process D5w (Rocephin) 23:00 Urine Bacterial WENDY 06/17/24 Uncollected Culture 22:49 Consistent DIET 06/18/24 Transmitted Carb(Ccho)Diabetes Breakfast Osmolality, Serum LAB 06/17/24 In Process 22:56 Echo 2d Mode Cardiac US 06/17/24 Logged DOP 23:02 Date of Service: Jun 17, 2024 Billing Provider: KESHAV MINER MD Common Visit Codes: [id number] INP/OBS CARE (HIGH) GRACE RODRIGUEZ RESIDENT Jun 17, 2024 23:20 KESHAV MINER MD Jun 18, 2024 23:15
[2024-06-17 23:24] LABS: COVID19 ANTIGEN SOFIA FIA NEGATIVE (NEGATIVE); Rapid Influenza A Negative (Negative); Rapid Influenza B Negative (Negative)
[2024-06-17] MEDS: cefTRIAXone 1GM/50ML D5W 50 ML IV SCH (23:29)
[2024-06-17 23:58] LABS: Amphetamine Screen, Urine Neg (NEGATIVE); Barbiturate Scree,Urine Neg (NEGATIVE); Benzodiazephine Screen, Urine Neg (NEGATIVE); Cannabinoid Screen, Urine Neg (NEGATIVE); Cocaine Screen, Urine Neg (NEGATIVE); Opiate Scree,Urine Neg (NEGATIVE); Phencyclidine Screen, Urine Neg (NEGATIVE)
[2024-06-18] VITALS (8 sets, daily range): BP systolic 112–155; BP diastolic 52–91; PULSE 61–103; RESP 16–18; TEMP 97.6–98.3; O2SAT 91–99
[2024-06-18] MEDS: InsuLIN REG 1unit/0.01ml Soln (100units/ml) SC SCH ×2 (06:14→22:15)
[2024-06-18] MEDS: ACCU-CHEK COMFORT CURVE STRIP VI SCH (06:14)
[2024-06-18] MEDS: INSULIN LANTUS (GLARGINE) 1 /0.01ml (100units/ml) SC SCH (06:15)
[2024-06-18 07:43] LABS: Basophils # (auto) 0 10 ^3/uL (0-0.2); Basophils % (auto) 0.8 % (0.0-2.0); Eosinophils # (auto) 0.1 10 ^3/uL (0-0.8); Eosinophils % (auto) 1.8 % (0.0-7.0); Hematocrit 42.8 % (36.0-46.0); Hemoglobin 14.2 g/dL (12.2-16.2); Lymphocytes # (auto) 1.3 10 ^3/uL (0.4-5.4); Lymphocytes % (auto) 43.6 % (10.0-50.0); Mean Corpuscular Hemoglobin 31.5 pg (28.0-32.0); Mean Corpuscular Hgb Conc. 33.3 g/dL (32.0-36.0); Mean Corpuscular Volume 94.6 fL (80.0-100.0); Monocytes # (auto) 0.3 10 ^3/uL (0-1.3); Monocytes % (auto) 11.3 % (0.0-12.0); Neutrophils # (auto) 1.3 10 ^3/uL (1.6-8.6); Neutrophils % (auto) 42.5 % (37.0-80.0); Nucleated Red Blood Cells % 0.3 %; Platelet Count (auto) 171 10^3/uL (140-450); Red Blood Cells 4.52 10^6/uL (4.0-5.20); Red Cell Distribution Width 13.2 % (11.8-14.3); White Blood Cell 3.1 10^3/uL (4.4-10.8)
--- NOTE | 2024-06-18 09:18 | ECG ---
[facility] Test Date: 2024-06-17 Test Time: 12:53:28 Pat Name: ALBERTO BARAJAS [facility] Gender: F [employer] Coordinator: EMELIA : 1955 Requested By: MERCED BOYER Order Number: [id number] Reading MD: Taye Bo Measurements Intervals [place] Rate: 73 P: 61 TX: 145 QRS: -28 QRSD: 91 T: 19 QT: 384 QTc: 424 Interpretive Statements Sinus rhythm Probable left atrial enlargement Left ventricular hypertrophy Anterior Q waves, possibly due to LVH Electronically Signed On 06-18-2024 9:27:14 PST by Taye Bo Please click the below link to view image of tracing.
[2024-06-18] MEDS ORDERED: ENOXAPARIN SOD 40 MG/0.4 ML SYRINGE SC SCH (10:00)
--- NOTE | 2024-06-18 13:44 | DVHPNRES ---
Progress Note Date Seen: Jun 18, 2024 Resident Creating Document: BOUCHRA LEBLANC RESIDENT Medical Necessity Reason Pt with a Central, PICC or Fol: No Subjective Review of Systems Patient is a 68-year-old female with past medical history of metastatic colon cancer s/p surgery/chemo/radiotherapy, CHF, hypertension, uncontrolled diabetes, 3 times CVA, DVT and PE, CAD, leukopenia, who came in due to hyperglycemia. Per patient and her daughter, she has been noncompliant with her medication for the last 3 months and has not picked up her medications from the pharmacy. Patient's daughter took her to her PCP Dr. Green today where she was noted to have a blood glucose level of 548. Per daughter, she was unable to pickle sorter patient's insulin from the pharmacy in ultimately decided to bring the patient to the ER. According to the patient's daughter, patient has been unsteady on her feet for the last 1 week and feeling weaker than usual. Past surgical history: Colorectal surgery, IVC filters, hysterectomy Home medications: Warfarin, metformin, benazepril, pravastatin, insulin Lantus, insulin Humalog Social & Personal history: Patient lives alone. Quit smoking 1 years ago, prior to that was smoking 1 pack per day for 50 years. Denies using alcohol, drugs. Allergies: Denies Patient seen and examined at bedside. Patient is alert and oriented to time, place person and responding to all questions. General: Fatigue, chills Eyes: No Pain, No Vision change, No Conjunctivae inflammation, No Eyelid inflammation, No Other, No Redness ENT: No Ear pain, No Ear discharge, No Nose pain, No Nose discharge, No Nose congestion, No Mouth pain, No Mouth swelling, No Throat pain, No Throat swelling, No Other Cardiovascular: No Chest Pain, No Palpitations, No Orthopnea, No Paroxysmal No Dyspnea, No Edema, No Lt Headedness, No Other Respiratory: No Cough, No Dry, No Shortness of breath, No SOB with exertion, No Wheezing, No Hemoptysis, No Pleuritic Pain, No Sputum, No Other Gastrointestinal: No Nausea, No Vomiting, No Abdominal Pain, No Diarrhea, No Constipation, No Melena, No Hematochezia, No Other Genitourinary: No Dysuria, Frequency, No Incontinence, No Hematuria, No Retention, No Other Musculoskeletal: No other, No neck pain, No shoulder pain, No arm pain, No back pain, No hand pain, No leg pain, No foot pain Skin: No Rash, No Lesions, No Jaundice, No Bruising, No Other Objective vital signs Vital Sign Date Time Temp Pulse Resp B/P (MAP) Pulse Ox O2 Delivery O2 Flow Rate FiO2 06/18/24 13:00 97.6 66 17 128/63 (84) 93 97.6 06/18/24 08:00 Room Air* 0 21 Total Intake and Output 06/17/24 06/17/24 06/18/24 15:00 23:00 07:00 Intake Total 100 ml Balance 100 ml medications Current Medications Medications Dose Ordered Sig/Nicole Route Start Time Stop Time Status Last Admin Dose Admin Docusate Sodium 100 mg BIDPRN PRN PO 06/17/24 21:30 Acetaminophen 650 mg Q6HP PRN PO 06/17/24 21:30 Diagnostic Test (Pha) 1 strip ACHS 06/18/24 07:00 06/18/24 11:44 1 STRIP Insulin Human Regular AC SC 06/18/24 07:00 06/18/24 12:48 12 UNITS Insulin Human Regular HS SC 06/18/24 22:00 Dextrose 50 ml UD PRN IV 06/17/24 22:30 Pantoprazole Sodium 40 mg DAILY IV 06/17/24 22:30 06/18/24 10:19 40 MG Ceftriaxone Sodium 50 ml @ 100 mls/hr DAILY@2300 IV 06/17/24 23:00 06/17/24 23:29 100 MLS/HR Insulin Glargine 18 units QAM SC 06/18/24 07:00 06/18/24 06:15 18 UNITS Warfarin Sodium -Hazardous Drug -DO NOT CRUSH OR ... PER PHARMACY PO 06/18/24 07:00 Atorvastatin Calcium 40 mg HS PO 06/18/24 22:00 UNV Acetaminophen/ Hydrocodone Bitart 1 tab Q6HPRN PRN PO 06/18/24 13:45 UNV Examination General Appearance: Cooperative. Well developed. Well nourished. NAD. Dry mucous membranes. Patient notes weight loss of 20 lb in the past 6 months, unintentional. Head Exam: Normal inspection Neck Exam: Normal inspection. Non-tender. Normal alignment Pulmonary/Respiratory: Chest non-tender. Clear bilateral breath sounds, no crackles, no wheezing. Cardiovascular/Chest: Regular rate and rhythm. No murmurs. No JVD. Peripheral Pulses: 2+ Radial (R). 2+ Radial (L). 2+ Pedal (R). 2+ Pedal (L) Abdominal Exam: Normal bowel sounds. Soft. normal abdomen, no visible veins, Nontender. No hepatospenomegaly. No masses. Mild left-sided costovertebral angle tenderness, suprapubic tenderness to palpation, left flank pain and tenderness to palpation Ankle Exam: Negative ankle edema Lower extremities: Negative lower extremity edema Neuro/Mental Status: A&O x4. Coherent. Thoughts/Psych: Normal thought pattern. Appropriate mood and affect. Good judgement and insight Skin Exam: Normal inspection. Normal color. Warm. Dry laboratory and microbiology Laboratory Tests 06/18/24 05:21 06/17/24 21:38 Test 06/17/24 21:38 Range/Units Serum Glucose 338 H 74-106 mg/dL Labs and/or images reviewed: Labs reviewed by me, Image(s) reviewed by me Problem List/Assessment/Plan Problem List/Assessment/Plan Severe hyperglycemia without DKA/HHS Type 2 diabetes, uncontrolled, insulin dependent. HB A1c >14 - insulin Lantus 18 units - aggressive sliding scale insulin Acute complicated UTI IV ceftriaxone Hypertension Hypertensive heart disease with LVH on EKG History of congestive heart failure? Currently stable Aortic stenosis? 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 vs antiphospholipid antibody syndrome? History of DVT and PE 30 years ago - warfarin per pharmacy History of metastatic colon cancer - ordered CT abdomen pelvis: Limited evaluation given noncontrast technique. No acute abdominopelvic abnormalities. No definite masses. Hepatomegaly. 3.5 cm fusiform infrarenal abdominal aortic aneurysm. Bilateral common iliac aneurysms measuring 2.5 cm on the right and 2.2 cm in the left - ordered serum lipase, CA 19 9 PUD prophylaxis: protonix 40mg Goals of care: Full code, discussed for >16 minutes on 06/18/2024 Plan discussed with patient Plan discussed with Dr. Rojas Plan discussed with: Patient, Daughter, Other (RN) My Orders My Orders Orders - BOUCHRA LEBLANC RESIDENT Procedure Category Date Status Time Atorvastatin (Lipitor) PHA 06/18/24 Logged 22:00 Sodium Chloride 0.9% PHA 06/18/24 Logged 13:00 Hydrocodone-Acet PHA 06/18/24 Logged 5/325mg Tab ([place] 13:45 BOUCHRA LEBLANC RESIDENT Jun 18, 2024 13:44
[2024-06-18] MEDS: SODIUM CHLORIDE 0.9% 500 ML IV ONE (14:50)
[2024-06-18] MEDS: HYDROcodone-ACET 5/325MG TAB PO PRN (15:02)
--- NOTE | 2024-06-18 15:34 | DVHSR ---
APPROVED REPORT EXAM: Two-dimensional and M-mode echocardiogram with Doppler and color Doppler. Blood Pressure: 112/58 mmHg INDICATION chf RISK FACTORS Obesity: Height: 4'10, Weight: 202 DIMENSIONS LVDd4.6 (3.8-5.7cm)LA (2D)3.8 (1.9-4.0cm)Aortic Root3.9 (2.0-3.7cm) LVDs3.0 (2.5-4.0cm)LA (MM) (1.9-4.0cm)Aortic Cusp Exc1.1 (1.5-2.0cm) EF (%) 60.0 (55-70%)Rt. Atrium3.8 (1.9-4.0cm)Asc. Aorta3.8 cm IVSd0.9 (0.7-1.1cm)RV (D) (1.8-2.4cm) PWd1.1 (0.7-1.1cm) Mitral Valve MitralMitral Stenosis E wave0.87m/sMV Mean GR.mmHg A wave1.18m/sMV Peak GR.63mmHg E/A ratio0.72D MVAcm2 DECEL [id number] 1/2 Tim[place] Aortic Valve Aortic ValveAortic Stenosis V10.98m/Jeni Mean GR.17mmHg V22.61m/Jeni Peak GR.27mmHg LVOT Diameter1.8 (1.8-2.4cm)Doppler AVA0.95cm2 Pulmonic Valve V21.01m/s Other Information Quality : TDSRhythm : Conclusion lvef 65% by visual estimate normal RV function, RV mild enlarged left atrium enlarged moderate , mean gradient of 17 mmhg
--- NOTE | 2024-06-18 16:21 | DVH ---
Exam: CT CT AB PEL WO CON-NO ORAL OR IV History: weight loss, r/o masses Comparison Study: None available TECHNIQUE: Multidetector CT of the abdomen and pelvis was performed from lung bases to pubic symphysi s. Imaging was performed without IV contrast. Axial, coronal, and sagittal multiplanar reformats were obtained from the axial data set by the technologist. RADIATION DOSE: DLP 1181.71 mGy.cm; CTDI vol 22.93 mGy. Findings: Limited evaluation given noncontrast technique. Lungs: The lung bases are clear. Heart: No cardiomegaly or pericardial effusion. Liver: The liver measures 21.3 cm in craniocaudal dimension. Gallbladder: Unremarkable. Spleen: Unremarkable Pancreas: Unremarkable Adrenals: Unremarkable Kidneys: Unremarkable GI tract: Unremarkable : Unremarkable. Vasculature: Moderate to marked aortoiliac atherosclerosis. 3.4 cm fusiform infrarenal abdominal aort ic aneurysm. Bilateral common iliac aneurysms measuring 2.5 cm on the right and 2.2 cm on the left. I VC filter. Lymphadenopathy: Absent Peritoneum: No ascites Musculoskeletal: Mild multilevel degenerative changes of the thoracolumbar spine. Soft tissues: Unremarkable Impression: 1. Limited evaluation given noncontrast technique. 2. No acute abdominopelvic abnormalities. 3. No definte masses. 4. Hepatomegaly. 5. 3.4 cm fusiform infrarenal abdominal aortic aneurysm. Bilateral common iliac aneurysms measuring 2 .5 cm on the right and 2.2 cm on the left.
[2024-06-18] MEDS: WARFARIN SODIUM 5 MG TAB PO ONE (18:16)
[2024-06-18] MEDS: ACETAMINOPHEN 325 MG TAB PO PRN (21:10)
[2024-06-18] MEDS: ATORVASTATIN 20 MG TAB PO SCH (21:15)
[2024-06-19] VITALS (7 sets, daily range): BP systolic 111–132; BP diastolic 42–72; PULSE 58–77; RESP 16–18; TEMP 97.7–98.9; O2SAT 90–100
[2024-06-19] MEDS: DOCUSATE SOD 100 MG CAP PO PRN (05:08)
[2024-06-19 07:19] LABS: Basophils # (auto) 0 10 ^3/uL (0-0.2); Basophils % (auto) 0.7 % (0.0-2.0); Eosinophils # (auto) 0.1 10 ^3/uL (0-0.8); Eosinophils % (auto) 1.3 % (0.0-7.0); Hematocrit 44.4 % (36.0-46.0); Hemoglobin 14.6 g/dL (12.2-16.2); Lymphocytes # (auto) 1.3 10 ^3/uL (0.4-5.4); Lymphocytes % (auto) 33.2 % (10.0-50.0); Mean Corpuscular Hemoglobin 31.3 pg (28.0-32.0); Mean Corpuscular Hgb Conc. 32.9 g/dL (32.0-36.0); Mean Corpuscular Volume 95.1 fL (80.0-100.0); Monocytes # (auto) 0.4 10 ^3/uL (0-1.3); Monocytes % (auto) 10.6 % (0.0-12.0); Neutrophils # (auto) 2.2 10 ^3/uL (1.6-8.6); Neutrophils % (auto) 54.2 % (37.0-80.0); Nucleated Red Blood Cells % 0.1 %; Platelet Count (auto) 188 10^3/uL (140-450); Red Blood Cells 4.67 10^6/uL (4.0-5.20)
[2024-06-19 07:26] LABS: Anion Gap 8 (5-15); Carbon Dioxide 27 mmol/L (20-31); Chloride 104 mmol/L (98-107); INR 1.31 (0.9-1.15); Partial Thromboplastin Time 27.9 SEC (24.5-34.5); Potassium 4.5 mmol/L (3.5-5.1); Prothrombin Time 13.5 sec (9.3-11.8); Sodium 139 mmol/L (136-145)
[2024-06-19 07:27] LABS: Calcium 9.6 mg/dL (8.7-10.4)
[2024-06-19 07:32] LABS: BUN/Creatinine Ratio 15.6 (10.0-20.0); Blood Urea Nitrogen 12 mg/dL (9-23)
[2024-06-19 07:44] LABS: Glucose 293 mg/dL (74-106)
[2024-06-19] MEDS ORDERED: DOCU-265 PO (15:19)
[2024-06-19] MEDS ORDERED: INSLANTI SC (15:19)
[2024-06-19] MEDS ORDERED: ATOR20TA50 PO (15:19)
[2024-06-19] MEDS ORDERED: ACET-1882 PO (15:19)
[2024-06-19] MEDS ORDERED: CEPH250C PO (15:19)
--- NOTE | 2024-06-19 17:53 | DVHDSRES ---
Discharge Summary Date of Admission Resident Creating Document: TAIWO QUIÑONES RESIDENT Jun 17, 2024 at 21:23 Date of Discharge: Jun 19, 2024 Labs/Diagnostic Data: Laboratory Results Test 06/19/24 05:30 06/18/24 21:06 06/18/24 05:21 06/17/24 22:40 White Blood Count 4.0 10^3/uL (4.4-10.8) Red Blood Count 4.67 10^6/uL (4.0-5.20) Hemoglobin 14.6 g/dL (12.2-16.2) Hematocrit 44.4 % (36.0-46.0) Mean Corpuscular Volume 95.1 fL (80.0-100.0) Mean Corpuscular Hemoglobin 31.3 pg (28.0-32.0) Mean Corpuscular Hemoglobin Concent 32.9 g/dL (32.0-36.0) Red Cell Distribution Width 13.0 % (11.8-14.3) Platelet Count 188 10^3/uL (140-450) Mean Platelet Volume 9.7 fL (6.9-10.8) Neutrophils (%) (Auto) 54.2 % (37.0-80.0) Lymphocytes (%) (Auto) 33.2 % (10.0-50.0) Monocytes (%) (Auto) 10.6 % (0.0-12.0) Eosinophils (%) (Auto) 1.3 % (0.0-7.0) Basophils (%) (Auto) 0.7 % (0.0-2.0) Neutrophils # (Auto) 2.2 10 ^3/uL (1.6-8.6) Lymphocytes # (Auto) 1.3 10 ^3/uL (0.4-5.4) Monocytes # (Auto) 0.4 10 ^3/uL (0-1.3) Eosinophils # (Auto) 0.1 10 ^3/uL (0-0.8) Basophils # (Auto) 0 10 ^3/uL (0-0.2) Nucleated Red Blood Cells 0.1 % Prothrombin Time 13.5 sec (9.3-11.8) Prothrombin Time INR 1.31 (0.9-1.15) Activated Partial Thromboplast Time 27.9 SEC (24.5-34.5) Sodium Level 139 mmol/L (136-145) Potassium Level 4.5 mmol/L (3.5-5.1) Chloride Level 104 mmol/L (98-107) Carbon Dioxide Level 27 mmol/L (20-31) Anion Gap 8 (5-15) Blood Urea Nitrogen 12 mg/dL (9-23) Creatinine 0.77 mg/dL (0.550-1.02) Glomerular Filtration Rate Calc 83 mL/min (>90) BUN/Creatinine Ratio 15.6 (10.0-20.0) Serum Glucose 293 mg/dL (74-106) Calcium Level 9.6 mg/dL (8.7-10.4) POC Glucose 221 mg/dl (70-106) Lipase 32 U/L (12-53) CA 19-9 Antigen 19 U/mL (0-35) Influenza Type A Antigen Negative (Negative) Influenza Type B Antigen Negative (Negative) SARS-CoV-2 Antigen (Rapid) Negative (NEGATIVE) Test 06/17/24 22:21 06/17/24 21:38 06/17/24 14:23 06/17/24 13:24 Hemoglobin A1c > 14.0 % A1C (<5.7) Serum Osmolality 293 mOsm/kg (278-298) Lactic Acid Level 0.9 mmol/L (0.4-2.0) Magnesium Level 1.7 mg/dL (1.6-2.6) B-Type Natriuretic Peptide 32.39 pg/mL (0-100) Thyroid Stimulating Hormone (TSH) 1.34 uIU/mL (0.55-4.78) Plasma/Serum Blood Alcohol < 3.0 mg/dL (<10) Total Bilirubin 0.5 mg/dL (0.2-1.0) Aspartate Amino Transferase (AST) 10 U/L (13-40) Alanine Aminotransferase (ALT) 13 U/L (7-40) Alkaline Phosphatase 119 U/L (46-116) Total Protein 6.0 g/dL (5.7-8.2) Albumin 3.8 g/dL (3.2-4.8) Urine Color Light-yellow (Yellow) Urine Clarity Clear (Clear) Urine pH 6.0 (5.0-9.0) Urine Specific [place] 1.031 (1.001-1.035) Urine Protein Negative (Negative) Urine Ketones 1+ (Negative) Urine Blood Negative /uL (Negative) Urine Nitrite 2+ (Negative) Urine Bilirubin Negative (Negative) Urine Urobilinogen Normal mg/dL (Negative) Urine Leukocyte Esterase 1+ /uL (Negative) Urine RBC 5 /hpf (0 - 4) Urine Microscopic WBC 19 /HPF (0-5) Urine Squamous Epithelial Cells Few /hpf (<5) Urine Bacteria Few /hpf (None Seen) Urine Mucus Few (None Seen) Urine Yeast (Budding) Occasional /hpf (None Urine Glucose 4+ mg/dL (Normal) Urine Opiates Screen Neg (NEGATIVE) Urine Fentanyl Screen Neg (NEGATIVE) Urine Barbiturates Screen Neg (NEGATIVE) Urine Phencyclidine Screen Neg (NEGATIVE) Urine Amphetamines Screen Neg (NEGATIVE) Urine Benzodiazepines Screen Neg (NEGATIVE) Urine Cocaine Screen Neg (NEGATIVE) Urine Cannabinoids Screen Neg (NEGATIVE) Beta-Hydroxybutyric Acid 0.764 mmol/L (< 0.4) Other Laboratory Tests 06/19/24 05:30 Brief Hx & Hospital Course: Bishop Delgado is a 68-year-old female presents to ED due to hyperglycemia. Per patient and her daughter, she has been noncompliant with her medication for the last 3 months and has not picked up her medications from the pharmacy. Patient's daughter took her to her PCP Dr. Green today where she was noted to have a blood glucose level of 548. Per daughter, she was unable to picker tender helper patient's insulin from the pharmacy in ultimately decided to bring the patient to the ER. According to the patient's daughter, patient has been unsteady on her feet for the last 1 week and feeling weaker than usual. Denies any other symptoms. Past medical history: Hypertension, uncontrolled diabetes, obesity, diastolic CHF with moderate aortic stenosis, probable antiphospholipid syndrome (CVA 3 times, DVT with PE and coronary artery disease) currently on warfarin, metastatic colon cancer status post surgery/chemotherapy/radiotherapy, noncompliant Surgical history: Colorectal surgery, IVC filters, hysterectomy Family history: Clotting alteration in family Social & Personal history: Patient lives alone. Quit smoking 1 years ago, prior to that was smoking 1 pack per day for 50 years. Denies using alcohol, drugs. Allergies: Denies Home medications: Warfarin, metformin, benazepril, pravastatin, insulin Lantus, insulin Humalog Brief hospital course: Simple hyperglycemia symptomatic by mild dizziness associated with UTI, responding to subcutaneous insulin (basal and rapid), empiric IV antibiotics and IV fluids. Discussed with PCP (Dr. Cardenas) who is concern for cancer recurrence and for systolic murmur, suggesting to order complementary workup, completed abdomen and pelvis CT which showed hepatomegaly, 3.4 cm fusiform infrarenal AAA and bilateral common iliac aneurysm 2.5 cm right in 2.2 cm left. Echocardiogram showed LVEF 65%, normal right ventricular function, LA enlargement, and moderate aortic stenosis (mean gradient 17 mmHg). No acute problems find found in complementary workup. Suggest follow up with PCP with eventual referrals to specialists. Patient hemodynamically stable, asymptomatic, with normal blood sugars, in condition to be discharged home. Was granted under optimal medical therapy (Keflex for UTI, Lantus), gave her advice on healthy lifestyle habits (mainly compliance with medication), and follow-up with PCP, brand protection manager, and supervisor epoxy fabrication if needed. DIAGNOSIS Severe hyperglycemia without DKA/HHS Type 2 diabetes, uncontrolled, insulin dependent. HB A1c >14 Acute complicated UTI Hypertension Hypertensive heart disease with LVH on EKG History of congestive heart failure? Currently stable Moderate Aortic stenosis Fusiform infrarenal AAA and bilateral common iliac aneurysms - asymptomatic Secondary hypercoagulable state due to IVC filter? vs antiphospholipid antibody syndrome? History of DVT, CVA, CAD and PE 30 years ago - hypercoagulable with a stay History of metastatic colon cancer Goals of care discussed with patient for over 18 minutes: Full code status Discussed plan with Dr. Solis, patient, daughter and nurses. Physical examination Patient lying in bed, in no acute distress General: Lucid, afebrile, mucosae are moist Cardiovascular: Normal S1 and S2. Systolic ejection murmur best heard in aortic foci, mid peaking with normal S2. No gallops or rubs Respiratory: Normal ventilation mechanics. Clear lung sounds on auscultation Abdomen: Soft, nontender, no organomegaly, normal bowel sounds MSK/skin: Mobilizes 4 limbs. Skin is dry and warm Neurological: Oriented in 3 spheres. No motor no sensitive deficits. Pupils are isocoric and reactive Operations or Procedures EXAM: XY CHEST TWO VIEWS ROUTINE CLINICAL HISTORY: weakness COMPARISON: None TECHNIQUE: Frontal and lateral view of the chest was obtained FINDINGS: Lines and Tubes: None Lungs: No focal consolidation. There is a calcified nodule in the left lower lung. Pleura: No effusion. No pneumothorax. Cardiomediastinal contours: Unremarkable. Atherosclerotic vascular calcifications of the thoracic aorta are noted. Bones: No acute osseous abnormality. IMPRESSION: No acute cardiopulmonary disease. ATED BY: CANDACE MEADE MD DICTATED DATE/TIME: 06/17/24 1346 Exam: CT CT AB PEL WO CON-NO ORAL OR IV History: weight loss, r/o masses Comparison Study: None available TECHNIQUE: Multidetector CT of the abdomen and pelvis was performed from lung bases to pubic symphysis. Imaging was performed without IV contrast. Axial, coronal, and sagittal multiplanar reformats were obtained from the axial data set by the technologist. RADIATION DOSE: DLP 1181.71 mGy.cm; CTDI vol 22.93 mGy. Findings: Limited evaluation given noncontrast technique. Lungs: The lung bases are clear. Heart: No cardiomegaly or pericardial effusion. Liver: The liver measures 21.3 cm in craniocaudal dimension. Gallbladder: Unremarkable. Spleen: Unremarkable Pancreas: Unremarkable Adrenals: Unremarkable Kidneys: Unremarkable GI tract: Unremarkable : Unremarkable. Vasculature: Moderate to marked aortoiliac atherosclerosis. 3.4 cm fusiform infrarenal abdominal aortic aneurysm. Bilateral common iliac aneurysms measuring 2.5 cm on the right and 2.2 cm on the left. IVC filter. Lymphadenopathy: Absent Peritoneum: No ascites Musculoskeletal: Mild multilevel degenerative changes of the thoracolumbar spine. Soft tissues: Unremarkable Impression: 1. Limited evaluation given noncontrast technique. 2. No acute abdominopelvic abnormalities. 3. No definte masses. 4. Hepatomegaly. 5. 3.4 cm fusiform infrarenal abdominal aortic aneurysm. Bilateral common iliac aneurysms measuring 2.5 cm on the right and 2.2 cm on the left. ATED BY: LUCI CHAPARRO DO DICTATED DATE/TIME: 06/18/24 1617 Condition at Discharge: Fair Final Diagnosis/Problems List Severe hyperglycemia without DKA/HHS Type 2 diabetes, uncontrolled, insulin dependent. HB A1c >14 Acute complicated UTI Hypertension Hypertensive heart disease with LVH on EKG History of congestive heart failure? Currently stable Moderate Aortic stenosis Fusiform infrarenal AAA and bilateral common iliac aneurysms - asymptomatic Secondary hypercoagulable state due to IVC filter? vs antiphospholipid antibody syndrome? History of DVT, CVA, CAD and PE 30 years ago - hypercoagulable with a stay History of metastatic colon cancer Discharge Disposition: Home SNF Discharge Will this Physician continue t: No Discharge Instruct/Medications Diet: Consistent carbohydrate, Cardiac 2g Na,low cholest Activity: No Restrictions, As Tolerated Follow Up/Referral: PCP Cardiology Endocrinology Medications: Per EMR Discharge Statement: "Patient was advised to return to the ER or call 911 if any headaches, dizziness, shortness of breath, chest pain, abdominal pain, bleeding, fevers, or worsening of medical condition. Patient was counseled about treatment plan, medications, possible side effects, patientverbalized understanding. All questions were answered to the best of my ability. This discharge took greater then 30 minutes in planning, reviewing documentation, counseling the patient, and discussing with other team members." ASSESSMENT ASSESSMENT Assessment SIMPLE HYPERGLYCEMIA Date of Service: Jun 20, 2024 Billing Provider: KARI SOLIS MD Common Visit Codes: 90111-RPO/OBS DISCH DAY >30min TAIWO QUIÑONES RESIDENT Jun 19, 2024 17:53 KARI SOLIS MD Jun 20, 2024 22:22
[2024-06-19] MEDS: WARFARIN SODIUM 2.5 MG TAB PO ONE (18:04)
[2024-06-21 08:48] LABS: Hepatitis B Surface Antigen Negative (Negative)
[2024-06-21 09:05] LABS: Hepatitis C Antibody Negative (Negative)
== END 2024-06-19 19:50 | disposition home or self-care (01) | DRG 638 ==
LOC: ER 12:37 → OVERFLOW 21:23 → TELE-WESTW 23:10
PROVIDERS: ADMIT Student in an Organized Health Care Education/Training Program; ATTEND Student in an Organized Health Care Education/Training Program
DX: E11.65 Type 2 diabetes mellitus with hyperglycemia (principal); D68.61 Antiphospholipid syndrome; D68.69 Other thrombophilia; N39.0 Urinary tract infection, site not specified; F17.210 Nicotine dependence, cigarettes, uncomplicated; Z20.822 Contact with and (suspected) exposure to COVID-19; I11.0 Hypertensive heart disease with heart failure; I50.9 Heart failure, unspecified; I35.0 Nonrheumatic aortic (valve) stenosis; I71.43 Infrarenal abdominal aortic aneurysm, without rupture; Z86.73 Personal history of transient ischemic attack (TIA), and cerebral infarction without residual deficits; Z90.710 Acquired absence of both cervix and uterus; Z91.148 Patient's other noncompliance with medication regimen for other reason; Z86.711 Personal history of pulmonary embolism; Z79.4 Long term (current) use of insulin; Z79.84 Long term (current) use of oral hypoglycemic drugs; Z79.899 Other long term (current) drug therapy
CPT/HCPCS: 36415; 71046; 74176; 80048; 80053; 80307; 80320; 81001; 82010; 82962; 83036; 83605; 83690; 83735; 83880; 83930; 84443; 85025; 85610; 85730; 86301; 86803; 87086; 87340; 87426; 87804; 93005; 93306; 96374; G0378; J1815; J2470

== ENCOUNTER 2025-02-11 20:05 | Emergency (ER) | payer OTHER ==
[~2025-02-11] VITALS: Ht 172.7 cm; Wt 94.5 kg
[~2025-02-11 20:05] MED LIST changes: +ACET-1882 PO; +ATOR20TA50 PO; +CEPH250C PO; -CHOL20007 PO; -CYAN100L PO; -DICY10CA PO; +DOCU-265 PO; -PRAV20TA3 PO; -SUCR1TAB31 OR
[2025-02-11 20:10] VITALS: TEMP 98.2
--- NOTE | 2025-02-11 20:54 | ED.PDOC ---
History of Present Illness HPI Comments 69-year-old female who came to ER for dizziness. Patient has a history of COPD and diabetes. Tested positive for COVID a month ago, but since then patient has been having on and off fever, generalized weakness, and dizziness. Patient diagnosed with UTI, treated with Keflex, however symptoms persisted. Has a ground level fall 2 days ago because of the weakness. Patient went to urgent Care, and was advised to proceed to the ER to rule out sepsis. Chief Complaint: Dizziness Time Seen by MD: 20:53 Primary Care Provider: NEVAEH Reviewed Notes: Nurses Notes Allergies: Coded Allergies: NO KNOWN ALLERGIES (Unverified , 03/11/12) Home Meds Active Scripts Cephalexin (KEFLEX CAPSULE) 250 Mg Cp, 1 CAP PO QID for 5 Days, #28 CAP Prov:TAIWO QUIÑONES 06/19/24 Insulin Glargine (Lantus) 100 Unit/Ml Inj, 18 UNITS SC QAM for 30 Days, #10 INJ Prov:TAIWO QUIÑONES 06/19/24 Docusate Sodium (Docusate Sodium) 100 Mg Cap, 100 MG PO BIDPRN PRN for 30 Days, #60 CAP Prov:TAIWO QUIÑONES 06/19/24 Atorvastatin Calcium (ATORVASTATIN CALCIUM) 20 Mg Tab, 40 MG PO HS for 30 Days, #60 TAB Prov:TAIWO QUIÑONES 06/19/24 Acetaminophen (Acetaminophen) 325 Mg Tab, 650 MG PO Q6HP PRN for 10 Days, #80 TAB Prov:TAIWO QUIÑONES 06/19/24 Famotidine (PEPCID TABLET) 20 Mg Tb, 1 TAB PO BID, #60 TAB 5 Refills Prov:MICHAEL MELO MD 06/15/21 Reported Medications Warfarin Sodium (Warfarin Sodium) 10 Mg Tab, 10 MG PO, TAB 11/13/17 Insulin Lispro (Human) (Humalog) 100 Unit/Ml Inj, SC, INJ 11/11/17 Metformin Hydrochloride (Metformin Hcl) 500 Mg Tab, 1000 MG PO BID for 30 Days, MG 11/11/17 Lisinopril (Lisinopril) 20 Mg Tab, 20 MG PO DAILY for 30 Days, MG 11/11/17 Information Source: Patient Mode of Arrival: Ambulatory Severity: Moderate Timing: Weeks Duration: Intermittent Past Medical History PAST MEDICAL HISTORY: Cancer, CHF, COPD, CVA, DM, PE, UTI'S Surgical History: Appendectomy, Hysterectomy CREDIT UNION TELLER History: No Pertinent CREDIT UNION TELLER History Family History Family History: No family hx of Cancer, No family hx of DM, No family hx of Heart liss, No family hx of HTN Social History Smoker: Cigarettes, Less Than 1 Pack/Day Alcohol: Occasionally Drugs: Denies Drug Use Lives In: Home Constitutional: reports: chills, fatigue, fever, weakness; denies: diaphoresis, malaise, sweats, others EENTM: denies: blurred vision, double vision, ear bleeding, ear discharge, ear drainage, ear pain, ear ringing, eye pain, eye redness, hearing loss, mouth pain, mouth swelling, nasal discharge, nose bleeding, nose congestion, nose pain, photophobia, tearing, throat pain, throat swelling, voice changes, others Respiratory: denies: cough, hemoptysis, orthopnea, SOB at rest, shortness of breath, SOB with excertion, stridor, wheezing, others Cardiovascular: denies: chest pain, dizzy spells, diaphoresis, Dyspnea on exertion, edema, irregular heart beat, left arm pain, lightheadedness, palpitations, PND, syncope, others Gastrointestinal: denies: abdomen distended, abdominal pain, blood streaked bowels, constipated, diarrhea, dysphagia, difficulty swallowing, hematemesis, melena, nausea, poor appetite, poor fluid intake, rectal bleeding, rectal pain, vomiting, others Genitourinary: denies: abnormal vagina bleeding, burning, dyspareunia, dysuria, flank pain, frequency, hematuria, incontinence, pain, , vagina discharge, urgency, others Neurological: reports: dizziness; denies: fainting, headache, left sided numbness, left sided weakness, numbness, paresthesia, pre-existing deficit, right sided numbness, right sided weakness, seizure, speech problems, tingling, tremors, weakness, others Musculoskeletal: denies: back pain, gout, joint pain, joint swelling, muscle pain, muscle stiffness, neck pain, others Integumetry: denies: bruises, change in color, change in hair/nails, dryness, laceration, lesions, lumps, rash, wounds, others Allergic/Immunocompromised: denies: Difficulty Healing, Frequent Infections, Hives, Itching, others Hematologic/Lymphatic: denies: anemia, blood clots, easy bleeding, easy bruising, swollen glands, others Endocrine: denies: excessive hunger, excessive sweating, excessive thirst, excessive urination, flushing, intolerance to cold, intolerance to heat, unexplained weight gain, unexplained weight loss, others Psychiatric: denies: anxiety, bipolar disorder, depression, hopeless, panic disorder, schizophrenia, sleepless, suicidal, others Physical Exam General Appearance: No Apparent Distress, Normal HEENT: Normal ENT Inspection, Pharynx Normal, TMs Normal Neck: Full Range of Motion, Non-Tender, Normal, Normal Inspection Respiratory: Chest Non-Tender, Lungs Clear, No Accessory Muscle Use, No Respiratory Distress, Normal Breath Sounds Cardiovascular: No Edema, No JVD, No Murmur, No Gallop, Normal Peripheral Pulses, Regular Rate/Rhythm Breast Exam: Deferred Gastrointestinal: No Organomegaly, Non Tender, No Pulsatile Mass, Normal Bowel Sounds, Soft Genitalia: Deferred Pelvic: Deferred Rectal: Deferred Extremities: No calf tenderness, Normal capillary refill, Normal inspection, Normal range of motion, Non-tender, No pedal edema Musculoskeletal : Apperance: Normal Neurologic: Alert, client experience administrator II-XII nml as Tested, No Motor Deficits, Normal Affect, Normal Mood, No Sensory Deficits Cerebellar Function: Normal Reflexes: Normal Skin: Dry, Normal Color, Warm Lymphatic: No Adenopathy Was a procedure done? Was a procedure done?: No Differential Dx Considerations may include: Anemia, electrolyte imbalance, urinary tract infection, viral syndrome, dehydration X-Ray, Labs, Meds, VS Vital Signs Date Time Temp Pulse Resp B/P (MAP) Pulse Ox O2 Delivery O2 Flow Rate FiO2 02/11/25 20:10 98.2 82 16 110/72 93 98.2 Lab Test 02/11/25 22:39 02/11/25 22:10 02/11/25 21:49 Range/Units Troponin I High Sensitivity < 3 L < 3 L </=34 ng/L Urine Color Light-yellow Yellow Urine Clarity Turbid H Clear Urine pH 6.0 5.0-9.0 Urine Specific [place] 1.030 1.001-1.035 Urine Protein Negative Negative Urine Ketones Negative Negative Urine Blood Negative Negative /uL Urine Nitrite Negative Negative Urine Bilirubin Negative Negative Urine Urobilinogen Normal Negative mg/dL Urine Leukocyte Esterase 2+ Negative /uL Urine RBC 24 0 - 4 /hpf Urine Microscopic WBC 89 H 0-5 /HPF Urine Squamous Epithelial Cells Few <5 /hpf Urine Bacteria None seen None Seen /hpf Urine Yeast (Budding) Few None Seen /hpf Urine Glucose 4+ H Normal mg/dL White Blood Count 5.2 4.4-10.8 10^3/uL Red Blood Count 4.45 4.0-5.20 10^6/uL Hemoglobin 13.8 12.2-16.2 g/dL Hematocrit 41.5 36.0-46.0 % Mean Corpuscular Volume 93.3 80.0-100.0 fL Mean Corpuscular Hemoglobin 30.9 28.0-32.0 pg Mean Corpuscular Hemoglobin Concent 33.2 32.0-36.0 g/dL Red Cell Distribution Width 13.8 11.8-14.3 % Platelet Count 243 140-450 10^3/uL Mean Platelet Volume 7.4 6.9-10.8 fL Neutrophils (%) (Auto) 52.4 37.0-80.0 % Lymphocytes (%) (Auto) 34.0 10.0-50.0 % Monocytes (%) (Auto) 11.0 0.0-12.0 % Eosinophils (%) (Auto) 1.8 0.0-7.0 % Basophils (%) (Auto) 0.8 0.0-2.0 % Neutrophils # (Auto) 2.7 1.6-8.6 10 ^3/uL Lymphocytes # (Auto) 1.8 0.4-5.4 10 ^3/uL Monocytes # (Auto) 0.6 0-1.3 10 ^3/uL Eosinophils # (Auto) 0.1 0-0.8 10 ^3/uL Basophils # (Auto) 0 0-0.2 10 ^3/uL Nucleated Red Blood Cells 0.0 % Sodium Level 144 136-145 mmol/L Potassium Level 4.7 3.5-5.1 mmol/L Chloride Level 104 98-107 mmol/L Carbon Dioxide Level 31 20-31 mmol/L Anion Gap 9 5-15 Blood Urea Nitrogen 11 9-23 mg/dL Creatinine 0.94 0.550-1.02 mg/dL Glomerular Filtration Rate Calc 65 >90 mL/min BUN/Creatinine Ratio 11.7 10.0-20.0 Serum Glucose 204 H 74-106 mg/dL Calcium Level 9.6 8.7-10.4 mg/dL Time of 1ST Reevaluation: 20:50 Reevaluation 1ST: Unchanged Patient Education/Counseling: Diagnosis, Treatment Family Education/Counseling: Diagnosis, Treatment SEPSIS Sepsis Screen Date sepsis recognized/suspect: Feb 11, 2025 Time Sepsis recognized/suspect: 2014 Recent Procedure: No On Antibiotic Therapy: No Respiratory Rate >20: No Heart Rate >90: No Temp<36 C (96.8 F) or >38.3 C: No SBP <90 or MAP <65 mmHG: No New Acute Mental Status Change: No Is the patient on CPAP, BIPAP,: No Physician Orders Chest Portable (02/11/25 21:04) Electrocardigram (02/11/25 21:04) Head Without Contrast (02/11/25 21:04) Electrocardigram (02/11/25 22:04) Electrocardigram (02/12/25 00:04) Ceftriaxone W Lidocaine (Rocephin W Lido (02/12/25 00:45) Vital Signs Date Time Temp Pulse Resp B/P (MAP) Pulse Ox O2 Delivery O2 Flow Rate FiO2 02/11/25 20:10 98.2 82 16 110/72 93 98.2 Laboratory Tests Test 02/11/25 21:49 White Blood Count 5.2 10^3/uL (4.4-10.8) Departure 1 Departure Time of Disposition: 00:36 (Patient likely with acute cystitis. Patient failed outpatient Keflex. We will discharge patient with cefdinir and outpatient follow up) Impression: Primary Impression: Acute cystitis Disposition: HOME / SELF CARE / HOMELESS Condition: Stable Additional Instructions: You have a urinary tract infection. You were prescribed antibiotics. Please take as directed. You can take Tylenol Motrin as needed for pain. It is important that he follow up with the regular doctor within 1 week to ensure you are doing better. If your symptoms worsen or you have any other concerns then please return to the emergency room. e-Prescriptions Cefdinir (Cefdinir) 300 Mg Cap 1 CAP PO BID for 7 Days, #14 CAP Prov: ROSEANNA JEREZ MD 02/12/25 Discharged With: Self Critical Care Note Critical Care Time?: No Stability Stability form required: No Heart Score Heart Score: Heart Score Response (Comments) Value History N/A 0 EKG N/A 0 Age N/A 0 Risk Factors N/A 0 Troponin N/A 0 Total 0 I personally scribed for ROSEANNA JEREZ MD ([email or web address]) on 02/11/25 at 20:54. Elect ronically submitted by Deng Levy ([facility]). ROSEANNA JEREZ MD Feb 11, 2025 20:54
--- NOTE | 2025-02-11 21:44 | DVH ---
CLINICAL HISTORY: dizzziness TECHNIQUE: Helical scanning was performed of the head from the skull base to the vertex. Multiplanar reconstructions were performed. This exam was performed according to our departmental dose optimizat ion program. Up-to-date CT equipment and radiation dose reduction techniques are utilized as appropri ate. WID: COMPARISON: None FINDINGS: There is no acute intracranial hemorrhage, CT evidence of acute ischemic changes, mass effect, midlin e shift, or extra-axial fluid collection. Ventricles are within normal limits The imaged intraorbital structures are unremarkable The imaged paranasal sinuses are clear. The mastoid air cells are clear. The calvarium is intact. IMPRESSION: NO ACUTE INTRACRANIAL FINDINGS
--- NOTE | 2025-02-11 21:52 | DVH ---
CLINICAL HISTORY: dizzines TECHNIQUE: 1 view of the chest was obtained. WID: COMPARISON: XY CHEST TWO VIEWS ROUTINE on DOS: 06/17/24 FINDINGS: Lungs: 5 mm right midlung pulmonary nodule. Cardiomediastinal silhouette: normal in size Bones: No acute osseous abnormality. Imaged Upper Abdomen: unremarkable. IMPRESSION: NO ACUTE CARDIOPULMONARY PROCESS. 5 mm right mid lung pulmonary nodule. Recommend chest CT without contrast in a nonemergent setting fo r further evaluation.
[2025-02-11 22:04] LABS: Hematocrit 41.5 % (36.0-46.0); Hemoglobin 13.8 g/dL (12.2-16.2); Mean Corpuscular Hemoglobin 30.9 pg (28.0-32.0); Mean Corpuscular Volume 93.3 fL (80.0-100.0); Nucleated Red Blood Cells % 0.0 %
[2025-02-11 22:23] LABS: Chloride 104 mmol/L (98-107); Potassium 4.7 mmol/L (3.5-5.1); Sodium 144 mmol/L (136-145)
[2025-02-11 22:24] LABS: Anion Gap 9 (5-15); Calcium 9.6 mg/dL (8.7-10.4); Carbon Dioxide 31 mmol/L (20-31)
[2025-02-11 22:29] LABS: BUN/Creatinine Ratio 11.7 (10.0-20.0); Blood Urea Nitrogen 11 mg/dL (9-23)
[2025-02-11 22:32] LABS: Glucose 204 mg/dL (74-106)
[2025-02-11 23:00] LABS: Urine Budding Yeast FEW /hpf (None Seen); Urine Protein, UAD Negative (Negative)
[2025-02-12] MEDS ORDERED: CEFD300C2 PO (00:36)
[2025-02-12 00:40] VITALS: BP 124/84; PULSE 76; RESP 18; O2SAT 98
[2025-02-12] MEDS: cefTRIAXone W LIDOCAINE 1 GM IM IM ONE (01:11)
== END 2025-02-12 01:20 | disposition home or self-care (01) ==
LOC: ER 20:05
DX: N30.00 Acute cystitis without hematuria (principal); E11.9 Type 2 diabetes mellitus without complications; F17.210 Nicotine dependence, cigarettes, uncomplicated; I50.9 Heart failure, unspecified; J44.9 Chronic obstructive pulmonary disease, unspecified; Z79.84 Long term (current) use of oral hypoglycemic drugs; Z79.899 Other long term (current) drug therapy; Z86.73 Personal history of transient ischemic attack (TIA), and cerebral infarction without residual deficits; Z87.440 Personal history of urinary (tract) infections; Z90.49 Acquired absence of other specified parts of digestive tract; Z90.710 Acquired absence of both cervix and uterus
CPT/HCPCS: 36415; 70450; 71045; 80048; 81001; 84484; 85025; J0696